=== PATIENT | male | born 1950 | race Caucasian/White ===

== ENCOUNTER 2019-12-15 22:54 | Inpatient (IN) | payer MEDICARE, BC ==
[~2019-12-15] VITALS: Ht 175.3 cm; Wt 83.4 kg
[2019-12-15 23:09] LABS: BASOPHILS ABSOLUTE AUTO 0.05 K/mm3 (0.00-0.23); BASOPHILS PERCENT AUTO 1 % (0-2); EOSINOPHILS ABSOLUTE AUTO 0.17 K/mm3 (0.00-0.68); EOSINOPHILS PERCENT AUTO 2 % (0-6); Hematocrit 43.6 % (37.0-53.0); Hemoglobin 14.3 g/dL (13.5-17.5); IMMATURE GRAN ABSOLUTE AUTO 0.03 K/mm3 (0.00-0.10); IMMATURE GRAN PERCENT AUTO 0 % (0-1); LYMPHOCYTES PERCENT AUTO 24 % (21-46); MONOCYTES ABSOLUTE AUTO 0.92 K/mm3 (0.16-1.47); MONOCYTES PERCENT AUTO 12 % (4-13); Mean Corpuscular HGB 34.9 pg (26.0-34.0); Mean Corpuscular HGB Conc 32.8 g/dL (31.5-36.5); Mean Corpuscular Volume 106 fL (80-100); Mean Platelet Volume 10.6 fL (9.1-12.4); NEUTROPHILS ABSOLUTE AUTO 4.94 K/mm3 (1.96-9.15); NEUTROPHILS PERCENT AUTO 62 % (41-73); Platelet Count 142 K/mm3 (150-400); RDW Coefficient Variation 12.7 % (11.7-14.2); RDW Standard Deviation 50.4 fL (35.1-46.3); White Blood Cell Count 8.01 K/mm3 (4.00-11.30)
[2019-12-15 23:23] LABS: International Normalized Ratio 1.12; Prothrombin Time Results 11.9 Sec (9.7-11.5)
[2019-12-15 23:26] LABS: Alanine Aminotransfer (ALT/SGP 77 U/L (12-78); Albumin, Blood 3.6 g/dL (3.4-5.0); Albumin/Globulin Ratio 0.9 (0.8-1.8); Alk Phos 121 U/L (50-136); Anion Gap 20 mmol/L (6-16); Aspartate Aminotrans (AST/SGOT 114 U/L (12-37); Bilirubin, Total 1.6 mg/dL (0.1-1.0); Blood Urea Nitrogen 9 mg/dL (8-24); Bun/Creatinine Ratio 10.6 (12.0-20.0); CO2, Blood 16 mmol/L (21-32); Calcium, Blood 9.1 mg/dL (8.5-10.1); Chloride, Blood 103 mmol/L (98-108); Creatinine, Blood 0.85 mg/dL (0.60-1.20); Ethanol (Alcohol), Blood, Med <3 mg/dL; Globulin, Blood 3.9 g/dL (2.2-4.0); Glomerular Filtration Rate >60 (60-); Glucose, Blood 156 mg/dL (70-99); Potassium, Blood 3.4 mmol/L (3.5-5.5); Sodium, Blood 139 mmol/L (136-145); Total Protein, Blood 7.5 g/dL (6.4-8.2)
[2019-12-15 23:29] LABS: U Amphetamine Screen Not Detected; U Barbituate Screen Not Detected; U Benzodiazapine Screen Not Detected; U Buprenorphine Screen Not Detected; U Cannabinoids Screen Not Detected; U Cocaine Screen Not Detected; U Methadone Screen Not Detected; U Methamphetamine Screen Not Detected; U Opiates Screen Not Detected; U Oxycodone Screen Not Detected; U Phencyclidine Screen Not Detected; U Propoxyphene Screen Not Detected
[2019-12-16 00:26] LABS: Source, Urine Clean Catch
[2019-12-16 00:29] LABS: Beta-hydroxybutyrate 1.5 mg/dL (0.2-2.8); Free Thyroxine 1.09 ng/dL (0.70-1.60); Salicylate <1.7 mg/dL (2.8-20.0)
[2019-12-16 00:29] LABS: Base Excess Venous 0.8 mmol/L; Bicarbonate Venous 25.7 mmol/L (24.0-30.0); PCO2 Venous 30.9 mmHg (38-42); PO2 Venous 130 mmHg (38-42)
[2019-12-16 00:31] LABS: Blood, Urine 2+ (Neg); Glucose Qualitative, Urine Neg (Neg); Ketones, Urine 1+ (Neg); Leukocyte Esterase, Urine 2+ (Neg); Nitrite, Urine Pos (Neg); Protein, Urine 3+ (Neg); Urobilinogen, Urine 4+ (Normal)
[2019-12-16 00:32] LABS: Appearance, Urine Hazy (Clear); Bilirubin, Urine 2+ (Neg); Color, Urine Amber (P-Yellow)
[2019-12-16 00:32] LABS: Acetaminophen, Random <2.0 ug/mL (10.0-30.0)
[2019-12-16 00:40] LABS: Amorphous Light (0-Heavy); Bacteria Mod /hpf; Mucus Light (0-Heavy); Red Blood Cells, Urine 0-2 /hpf (0-2); Squamous Epithelial Cells Rare /hpf (Few); White Blood Cells, Urine 25-50 /hpf (0-5)
[2019-12-16 04:18] LABS: BASOPHILS ABSOLUTE AUTO 0.04 K/mm3 (0.00-0.23); BASOPHILS PERCENT AUTO 1 % (0-2); EOSINOPHILS ABSOLUTE AUTO 0.02 K/mm3 (0.00-0.68); EOSINOPHILS PERCENT AUTO 0 % (0-6); Hematocrit 38.1 % (37.0-53.0); IMMATURE GRAN ABSOLUTE AUTO 0.02 K/mm3 (0.00-0.10); IMMATURE GRAN PERCENT AUTO 0 % (0-1); LYMPHOCYTES ABSOLUTE AUTO 0.73 K/mm3 (0.84-5.20); LYMPHOCYTES PERCENT AUTO 12 % (21-46); MONOCYTES ABSOLUTE AUTO 0.61 K/mm3 (0.16-1.47); MONOCYTES PERCENT AUTO 10 % (4-13); Mean Corpuscular HGB 35.3 pg (26.0-34.0); Mean Corpuscular HGB Conc 34.1 g/dL (31.5-36.5); Mean Corpuscular Volume 104 fL (80-100); Mean Platelet Volume 10.6 fL (9.1-12.4); NEUTROPHILS PERCENT AUTO 76 % (41-73); Platelet Count 125 K/mm3 (150-400); RDW Coefficient Variation 12.7 % (11.7-14.2); RDW Standard Deviation 48.8 fL (35.1-46.3); Red Blood Cell Count 3.68 M/mm3 (4.30-5.90); White Blood Cell Count 5.92 K/mm3 (4.00-11.30)
[2019-12-16 04:34] LABS: International Normalized Ratio 1.12; Prothrombin Time Results 11.9 Sec (9.7-11.5)
[2019-12-16 04:43] LABS: Alanine Aminotransfer (ALT/SGP 65 U/L (12-78); Albumin, Blood 3.3 g/dL (3.4-5.0); Alk Phos 100 U/L (50-136); Anion Gap 7 mmol/L (6-16); Aspartate Aminotrans (AST/SGOT 88 U/L (12-37); Bilirubin, Total 1.5 mg/dL (0.1-1.0); Blood Urea Nitrogen 8 mg/dL (8-24); Bun/Creatinine Ratio 11.5 (12.0-20.0); CO2, Blood 28 mmol/L (21-32); Calcium, Blood 8.9 mg/dL (8.5-10.1); Chloride, Blood 107 mmol/L (98-108); Creatinine, Blood 0.69 mg/dL (0.60-1.20); Globulin, Blood 3.2 g/dL (2.2-4.0); Glomerular Filtration Rate >60 (60-); Glucose, Blood 125 mg/dL (70-99); Potassium, Blood 3.3 mmol/L (3.5-5.5); Sodium, Blood 142 mmol/L (136-145); Total Protein, Blood 6.5 g/dL (6.4-8.2)
--- NOTE | 2019-12-16 06:35 | NUR ---
ADMIT NOTE/SHIFT SUMMARY PATIENT ADMITED EARLIER THIS SHIFT AND HAS BEEN PLEASENT AND COOPERATIVE TONIGHT. HOWEVER, PATIENT HAS BEEN VERY FORGETFUL. PATIENT ABLE TO STATE CURRENT DATE, PRESIDENT, LOCATION, AND TOWN. BUT PATIENT APPEARS TO BE HAVING DIFFICULTY REMEMBERING NEW INFORMATION. PATIENT VERY UNSTEADY ON FEET. IV FLUIDS RUNNING PER ORDERS. PATIENT ORIENTED TO ROOM, UNIT, AND CALL LIGHT. PATIENT CURRENTLY RESTING IN BED, TRYING TO GET SOME SLEEP. BED ALARM ON FOR SAFETY. WILL CONTINUE TO MONITOR PATIENT AND REPORT TO ONCOMING RN.
--- NOTE | 2019-12-16 09:52 | NUR ---
MD SORTO - UPDATE - ASSUME CARE PATIENT ALERT AND ORIENTED TO SELF, LOCATION AND TIME/DATE. PATIENT VERY UNSTEADY ON HIS FEET, TREMULOUS REQUIRING 2 PERSON ASSIT. PATIENT HAD INCONTINENT BOWEL MOVEMENT THAT WAS LIQUID YELLOW (PER PATIENT HE WAS UNAWARE). WITH 2 ASSIT PATIENT SHOWERED, TOILETED, LINEN CHANGE AND RETURNED BACK TO BED FOR ORAL CARE. RESP E/U ON ROOM AIR AND VSS. PATIENT DENIES ANY PAIN AND REPORTS THAT HE FEELS WELL. PATIENT NOTED TO BE JAUNDICE, RED/YELLOW EYE SCLERA AND PURPERA NOTED. DISCUSSED ALL FINDINGS WITH MD SORTO - NO NEW ORDERS GIVEN AT THIS TIME. BED ALARM ON AND PATIENT ATTEMPTING TO REST.
--- NOTE | 2019-12-16 18:25 | NUR ---
PCU DAYSHIFT SUMMARY PATIENT ALERT AND ORIENTED TO SELF, LOCATION AND DATE. CONFUSED TO SITUATION. RESP E/U ON ROOM AIR AND VSS. PATIENT IS VERY WEAK ON HIS FEET AND TREMULOUS WITH MOVEMENTS. JAUNDICE AND YELLOW SCLERA NOTED. PATIENT HAVING LIQUID STOOLS T/O SHIFT. DENIES ANY PAIN. BED ALARM ON AND PATIENT EDUCATED TO FALL PRECAUTIONS. PATIENT MEDICATED FOR CIWA 10-11 T/O SHIFT PER EMAR. CALL LIGHT W/I REACH. WILL CONTINUE TO MONITOR AND REPORT TO NOC SHIFT RN.
[2019-12-17 04:24] LABS: Hematocrit 36.2 % (37.0-53.0); Mean Corpuscular HGB 35.6 pg (26.0-34.0); Mean Corpuscular HGB Conc 33.1 g/dL (31.5-36.5); Mean Corpuscular Volume 107 fL (80-100); Mean Platelet Volume 11.3 fL (9.1-12.4); Platelet Count 121 K/mm3 (150-400); RDW Coefficient Variation 12.8 % (11.7-14.2); RDW Standard Deviation 51.1 fL (35.1-46.3); Red Blood Cell Count 3.37 M/mm3 (4.30-5.90)
[2019-12-17 04:37] LABS: Albumin, Blood 2.8 g/dL (3.4-5.0); Anion Gap 6 mmol/L (6-16); Blood Urea Nitrogen 6 mg/dL (8-24); Bun/Creatinine Ratio 8.1 (12.0-20.0); CO2, Blood 27 mmol/L (21-32); Calcium, Blood 8.9 mg/dL (8.5-10.1); Chloride, Blood 111 mmol/L (98-108); Creatinine, Blood 0.75 mg/dL (0.60-1.20); Glomerular Filtration Rate >60 (60-); Glucose, Blood 99 mg/dL (70-99); Magnesium, Blood 1.5 mg/dL (1.6-2.4); Phosphorus, Blood 4.6 mg/dL (2.5-4.9); Potassium, Blood 3.8 mmol/L (3.5-5.5); Sodium, Blood 144 mmol/L (136-145)
--- NOTE | 2019-12-17 07:59 | NUR ---
SHIFT SUMMARY PATIENT PLEASENT BUT FORGETFUL THROUGHOUT THE NIGHT. PATIENT EASILY REDIRECTABLE BUT VERY IMPULSIVE LAST NIGHT. CIWA'S CHARTED, PATIENT MEDICATED NEEDED FOR CIWA SCORES PER EMAR. PATIENT INCREASINGLY IMPULSIVE AND FORGETFUL THE NIGHT PROGRESSED AND HAS BEEN BECOMING LESS REDIRECTABLE WHEN AWAKE. PATIENT APPEARED TO SLEEP WELL ON AND OFF THROUGHOUT THE NIGHT. VITAL SIGNS CHARTED. IV FLUIDS RUNNING PER ORDERS. REPORT GIVEN TO ONCOMING RN.
--- NOTE | 2019-12-17 18:31 | NUR ---
SHIFT SUMMARY; MEDICATED PER CIWA ORDERS THROUGH OUT SHIFT. TOLERATES ATIVAN WELL. ORIENTED TO PERSON AND SITUATION OFF AND ON DURING SHIFT. 2 PERSON ASSIST TO BEDSIDE COMMODE. BRE VEST IN PLACE DUE TO CLIMBING OUT OF BED AND UNREDIRECTABLE. PT STATES HE IS FINE DISPITE VISUAL TREMORS, DISORIENTATION, AND UNABLE TO STAND INDEPENDANTLY. VISIBLE DIAPHERESIS DURING SHIFT, VSS, WILL CONTINUE TO MONITOR AND TREAT UNTIL CHANGE OF SHIFT.
[2019-12-18 04:38] LABS: Albumin, Blood 3.2 g/dL (3.4-5.0); Anion Gap 5 mmol/L (6-16); Blood Urea Nitrogen 5 mg/dL (8-24); CO2, Blood 28 mmol/L (21-32); Chloride, Blood 110 mmol/L (98-108); Creatinine, Blood 0.71 mg/dL (0.60-1.20); Glomerular Filtration Rate >60 (60-); Glucose, Blood 103 mg/dL (70-99); Magnesium, Blood 1.7 mg/dL (1.6-2.4); Phosphorus, Blood 3.5 mg/dL (2.5-4.9); Potassium, Blood 3.6 mmol/L (3.5-5.5); Sodium, Blood 143 mmol/L (136-145)
--- NOTE | 2019-12-18 06:50 | NUR ---
SHIFT SUMMARY PT SLEPT T/O NIGHT. CIWA DONE Q 2 HR, RANGE BETWEEN 7-12. TREATED PER EMAR. PT IN BRE RESTRAINTS, ASSESSED Q 2 HR. PT REPORTS NO CP OR PRESSURE. BED ALARM ON. O2 SATURATION ABOVE 92% ON RA. WILL CONTINUE TO MONITOR UNTIL REPORT GIVEN TO DAYSHIFT RN.
--- NOTE | 2019-12-18 18:07 | NUR ---
SHIFT NOTE PT HAS BEEN TREATED WITH ATIVAN AND LIBRIUM FOR CIWA OF 12 T/O THE DAY. PT DID REMOVE HIS IV AT SOME POINT TODAY WHICH WAS REPLACED, AND THIAMINE DRIP IS INFUSING AT THE TIME OF THIS NOTE. PT WAS LAST TREATED WITH ATIVAN HE WAS NOT ABLE TO FOCUS TO SWALLOW LIBRIUM. PT REMAINS IN BRE HE INTERMITTENLY ATTEMPTS TO EXIT THE BED.
[2019-12-19 04:14] LABS: BASOPHILS ABSOLUTE AUTO 0.05 K/mm3 (0.00-0.23); BASOPHILS PERCENT AUTO 1 % (0-2); EOSINOPHILS PERCENT AUTO 4 % (0-6); Hematocrit 39.2 % (37.0-53.0); Hemoglobin 13.2 g/dL (13.5-17.5); IMMATURE GRAN ABSOLUTE AUTO 0.02 K/mm3 (0.00-0.10); IMMATURE GRAN PERCENT AUTO 0 % (0-1); LYMPHOCYTES ABSOLUTE AUTO 0.81 K/mm3 (0.84-5.20); LYMPHOCYTES PERCENT AUTO 15 % (21-46); MONOCYTES ABSOLUTE AUTO 0.85 K/mm3 (0.16-1.47); MONOCYTES PERCENT AUTO 16 % (4-13); Mean Corpuscular HGB 35.5 pg (26.0-34.0); Mean Corpuscular HGB Conc 33.7 g/dL (31.5-36.5); Mean Corpuscular Volume 105 fL (80-100); Mean Platelet Volume 10.9 fL (9.1-12.4); NEUTROPHILS ABSOLUTE AUTO 3.54 K/mm3 (1.96-9.15); NEUTROPHILS PERCENT AUTO 65 % (41-73); Platelet Count 146 K/mm3 (150-400); RDW Coefficient Variation 12.6 % (11.7-14.2); RDW Standard Deviation 49.1 fL (35.1-46.3); Red Blood Cell Count 3.72 M/mm3 (4.30-5.90); White Blood Cell Count 5.47 K/mm3 (4.00-11.30)
[2019-12-19 04:31] LABS: Albumin, Blood 3.1 g/dL (3.4-5.0); Anion Gap 6 mmol/L (6-16); Blood Urea Nitrogen 7 mg/dL (8-24); Bun/Creatinine Ratio 11.1 (12.0-20.0); CO2, Blood 26 mmol/L (21-32); Calcium, Blood 8.9 mg/dL (8.5-10.1); Chloride, Blood 109 mmol/L (98-108); Creatinine, Blood 0.63 mg/dL (0.60-1.20); Glomerular Filtration Rate >60 (60-); Glucose, Blood 98 mg/dL (70-99); Phosphorus, Blood 3.7 mg/dL (2.5-4.9); Potassium, Blood 3.5 mmol/L (3.5-5.5); Sodium, Blood 141 mmol/L (136-145)
--- NOTE | 2019-12-19 04:33 | NUR ---
PT WAS SOMEWHAT IRRITABLE THIS EVENING. RN GAVE ATIVAN X4, AND LIBRIUM X1. PT IS COOPERATIVE WITH FREQUENT ENCOURAGEMENT, BUT DOESNT LAST LONG. STILL DISORIENTED SOME WITH SOME VISIBLE TREMORS. PT VSS, AOX2, ROOM AIR, TELE NSR WHEN ABLE TO READ WHEN NOT SHAKING OFTEN, VOIDING TO THE BRIEF X3, 0 BM. CALL LIGHT WITHIN REACH, BED IN LOWEST POSITION. WILL CONTINUE TO MONITOR.
--- NOTE | 2019-12-19 17:46 | NUR ---
SHIFT NOTE PT HAS BEEN REMOVED FROM BRE VEST DURING THIS SHIFT, WHICH HAS BEEN WELL TOLERATED. PT HAS HAD EVER CHAGNING MENTATION T/O THIS SHIFT, BUT HAS BEEN COOPERATIVE AND PLEASANT. PT WAS ALERT, CONVERSIVE AND PLEASANT. PT DID BECOME FEBRILE AND DROWSY AFTER WORKING WITH PT TODAY. PT WAS TREATED WITH TYLENOL FOR FEVER. PT IS SITTING UP DRINKING OJ IN BED AT THIS TIME. PT HAS BEEN TREATED ONLY WITH LIBRIUM THIS SHIFT WITH A CIWA THAT IS TRENDING DOWN.
[2019-12-20 04:27] LABS: Albumin, Blood 2.8 g/dL (3.4-5.0); Anion Gap 7 mmol/L (6-16); Blood Urea Nitrogen 11 mg/dL (8-24); Bun/Creatinine Ratio 16.8 (12.0-20.0); CO2, Blood 25 mmol/L (21-32); Calcium, Blood 9.2 mg/dL (8.5-10.1); Chloride, Blood 108 mmol/L (98-108); Creatinine, Blood 0.65 mg/dL (0.60-1.20); Glomerular Filtration Rate >60 (60-); Glucose, Blood 96 mg/dL (70-99); Magnesium, Blood 1.6 mg/dL (1.6-2.4); Phosphorus, Blood 3.8 mg/dL (2.5-4.9); Potassium, Blood 3.3 mmol/L (3.5-5.5); Sodium, Blood 140 mmol/L (136-145)
--- NOTE | 2019-12-20 05:53 | NUR ---
PT RESTED THROUGHOUT NIGHT DISORIENTED AND LETHARGIC NO ATIVAN OR LIBRIUM NEEDED PT HAD MULTIPLE INCONT URINARY EPISODES 0 BM CIWA 8 ,6, 6 NO C/O PAIN CALL LIGHT WITHIN REACH, BED ALARM ON, BED IN LOWEST POSITION WILL CONTINUE TO MONITOR.
--- NOTE | 2019-12-20 17:50 | NUR ---
RECEIVED PATIENT FROM PCU AROUND 1705. IV INFUSING LEFT A/C. LUNGS CLEAR. GOOD BUE PULSES, WEAK BLE PULSES. SKIN JAUNDICE. INCONTINENT OF URINE. VERY UNSTEADY ON FEET. ALERT TO ;SELF, KNOWS PRESIDENT, KNOWS LIVES IN [facility], KNOWS DATE AFTER SOME THOUGHT, AND KNOWS IN [place]. DOES NOT KNOW HOW HE GOT HERE OR WHERE HE WAS GOING. CIWA =1 AT THIS TIME,W/ NO OBVIOUS TREMORS OR HALLUCINATIONS. FOLLOWS COMMANDS. SCABS SCATTERED ALL EXTREMITIES. ECCHYMOTIC SCATTERED ALL EXTREMITIES. [facility] POLICE HAVE CALLED ABOUT PATIENT AND ASK IF HE IS HERE. IT APPEARS THEY LOCATED PATIENT WITH A PING FROM HIS CELL PHONE. PATIENT IS A MISSING PERSONS OUT OF [facility] AND POLICE WILL LET HIS RELATIVES KNOW HE IS HERE. AT THIS TIME WE DO NOT HAVE ANY PHONE NUMBERS FOR PATIENT RELATIVES. [facility]
--- NOTE | 2019-12-20 20:15 | NUR ---
PT RESTED COMFORTABLY IN BED; CHEERFUL; ALERT AND ORIENTED X 2.
--- NOTE | 2019-12-21 03:39 | NUR ---
SHIFT SUMMARY: 69 Y/O MALE RESTED COMFORTABLY ALL SHIFT; CIWA 4; PT ALERT AND ORIENTED X 2; PT UNABLE TO STAND OR BEAR WEIGHT WITHOUT FALLING HE APPEARS VERY WEAKENED; PTS THOUGHT PROCESS IS DISORGANIZED AND UNABLE TO CARRY ON CONVERSATION WITH STAFF WITH PT ONLY MUMBLING TO SELF AT TIMES; PT VOICED HE COULD USE SOME VODKA TONIGHT; DENIES PAIN OR NAUSEA; BED ALARM APPLIED; BED LOW POSITION WITH CALL LIGHT AT SIDE.
[2019-12-21 05:47] LABS: BASOPHILS ABSOLUTE AUTO 0.04 K/mm3 (0.00-0.23); BASOPHILS PERCENT AUTO 1 % (0-2); EOSINOPHILS ABSOLUTE AUTO 0.17 K/mm3 (0.00-0.68); EOSINOPHILS PERCENT AUTO 3 % (0-6); Hemoglobin 12.4 g/dL (13.5-17.5); IMMATURE GRAN ABSOLUTE AUTO 0.02 K/mm3 (0.00-0.10); IMMATURE GRAN PERCENT AUTO 0 % (0-1); LYMPHOCYTES ABSOLUTE AUTO 0.93 K/mm3 (0.84-5.20); LYMPHOCYTES PERCENT AUTO 15 % (21-46); MONOCYTES ABSOLUTE AUTO 1.21 K/mm3 (0.16-1.47); MONOCYTES PERCENT AUTO 19 % (4-13); Mean Corpuscular HGB 35.1 pg (26.0-34.0); Mean Corpuscular HGB Conc 33.5 g/dL (31.5-36.5); Mean Corpuscular Volume 105 fL (80-100); Mean Platelet Volume 11.2 fL (9.1-12.4); NEUTROPHILS ABSOLUTE AUTO 3.88 K/mm3 (1.96-9.15); NEUTROPHILS PERCENT AUTO 62 % (41-73); Platelet Count 161 K/mm3 (150-400); RDW Coefficient Variation 12.5 % (11.7-14.2); RDW Standard Deviation 48.3 fL (35.1-46.3); Red Blood Cell Count 3.53 M/mm3 (4.30-5.90); White Blood Cell Count 6.25 K/mm3 (4.00-11.30)
[2019-12-21 06:11] LABS: Magnesium, Blood 1.6 mg/dL (1.6-2.4)
[2019-12-21 06:12] LABS: Anion Gap 9 mmol/L (6-16); Blood Urea Nitrogen 10 mg/dL (8-24); Bun/Creatinine Ratio 15.3 (12.0-20.0); CO2, Blood 25 mmol/L (21-32); Calcium, Blood 8.9 mg/dL (8.5-10.1); Chloride, Blood 106 mmol/L (98-108); Creatinine, Blood 0.66 mg/dL (0.60-1.20); Glomerular Filtration Rate >60 (60-); Glucose, Blood 106 mg/dL (70-99); Potassium, Blood 3.4 mmol/L (3.5-5.5); Sodium, Blood 140 mmol/L (136-145)
--- NOTE | 2019-12-21 18:14 | NUR ---
SHIFT SUMAMRY: NO ACUTE CHANGES TO REPORT THIS SHIFT. PT A&O X2; CALM AND COOPERATIVE WITH CARE. CIWAs ASSESSED AT 5 T/O SHIFT; CONFUSION CONTINUING. VERY WEAK c POOR, SHUFFLING GAIT; 2-ASSIST TO BSC; PT & OT EVAL & TREAT. FAMILY UPDATED WITH PLAN OF CARE. WCTM.
--- NOTE | 2019-12-21 19:28 | NUR ---
PT RESTING IN BED; ALERT AND ORIENTED X 2; ABLE TO FOLLOW VERY SIMPLE VERBAL COMMANDS;
--- NOTE | 2019-12-22 04:16 | NUR ---
SHIFT SUMMARY: 69 Y/O MALE RESTED COMFORTABLY ALL SHIFT; PT VERY DROWSY BEGINNING OF SHIFT AND HAD DIFFICULTY TALKING WITH THIS NURSE WITH PATIENT MORE AWAKE AND LUCID IN LATE MORNING HOURS; PT ATE [employer] AND WAS ABLE FEED SELF WITHOUT ISSUE AND CARRY ON ORGANIZED CONVERSATION WITH THIS NURSE; CIWA 5; DENIES PAIN OR NAUSEA; NO AGGRESSIVE BEHAVIOR NOTED; PT STILL VERY WEAK AND UNABLE TO AMBULATE SO THUS BED ALARM APPLIED, BED LOW POSITION WITH CALL LIGHT AT SIDE.
[2019-12-22 06:07] LABS: BASOPHILS ABSOLUTE AUTO 0.04 K/mm3 (0.00-0.23); BASOPHILS PERCENT AUTO 1 % (0-2); EOSINOPHILS PERCENT AUTO 4 % (0-6); Hematocrit 35.1 % (37.0-53.0); Hemoglobin 11.8 g/dL (13.5-17.5); IMMATURE GRAN ABSOLUTE AUTO 0.02 K/mm3 (0.00-0.10); IMMATURE GRAN PERCENT AUTO 0 % (0-1); LYMPHOCYTES ABSOLUTE AUTO 0.78 K/mm3 (0.84-5.20); LYMPHOCYTES PERCENT AUTO 14 % (21-46); MONOCYTES ABSOLUTE AUTO 0.96 K/mm3 (0.16-1.47); MONOCYTES PERCENT AUTO 17 % (4-13); Mean Corpuscular HGB 35.3 pg (26.0-34.0); Mean Corpuscular HGB Conc 33.6 g/dL (31.5-36.5); Mean Corpuscular Volume 105 fL (80-100); Mean Platelet Volume 10.7 fL (9.1-12.4); NEUTROPHILS ABSOLUTE AUTO 3.53 K/mm3 (1.96-9.15); NEUTROPHILS PERCENT AUTO 64 % (41-73); Platelet Count 170 K/mm3 (150-400); RDW Coefficient Variation 12.3 % (11.7-14.2); RDW Standard Deviation 48.1 fL (35.1-46.3); Red Blood Cell Count 3.34 M/mm3 (4.30-5.90); White Blood Cell Count 5.53 K/mm3 (4.00-11.30)
[2019-12-22 06:19] LABS: Anion Gap 7 mmol/L (6-16); Blood Urea Nitrogen 10 mg/dL (8-24); Bun/Creatinine Ratio 16.9 (12.0-20.0); CO2, Blood 27 mmol/L (21-32); Calcium, Blood 9.4 mg/dL (8.5-10.1); Chloride, Blood 104 mmol/L (98-108); Creatinine, Blood 0.59 mg/dL (0.60-1.20); Glomerular Filtration Rate >60 (60-); Glucose, Blood 118 mg/dL (70-99); Potassium, Blood 3.6 mmol/L (3.5-5.5); Sodium, Blood 138 mmol/L (136-145)
--- NOTE | 2019-12-22 17:50 | NUR ---
SUMMARY PT IS A/O X2-3 THIS AM, FORGETFUL, SLOW MENTATION. PLEASANT/COOPERATIVE AFFECT. CIWA SCORES 2 R/T SLOW MENTATION, NO BUE TREMORS, HE STATE NO ANXIETY, VS ARE STABLE. HE WAS UP TO CHAIR FOR BF HOWEVER HEAVY 2 ASSIST, STATE PAIN W WT BRG. PHYTHER IN FOR EVAL STATE PT CONTINUES TO HAVE PAIN w WT BRG L ANKLE. DR SOLOMONTRATE ORDER IBUPROFEN 800 MG, XRAY L ANKLE WHICH WAS NEG FOR FX. PHYTHER STATE PROBABLY SPRAIN, RECOMMEND ANKLE BRACE. PT IS FROM [place], HE HAS BEEN ON PHONE MULT X'S W FAMILY/FRIENDS.
--- NOTE | 2019-12-23 04:49 | NUR ---
SHIFT SUMMARY NO ACUTE CHANGES TO REPORT THIS SHIFT. PT HAS RESTED MOST OF THE NIGHT, AND HAS NO COMPLAINTS. CIWA SCORES REMAIN LOW. 0-1 WITH MY ASSESSMENT. PT IS A/OX3, IT TAKES PT SOME TIME TO PROCESS THE QUESTIONS I AM ASKING, BUT ANSWERS QUESTIONS APPROPRIATELY. VITALS ARE STABLE. PLAN IS FOR DISCHARGE TUESDAY BACK TO [place] WITH FAMILY. BED IN LOWEST POSITION, CALL LIGHT WITHIN REACH. WILL CONTINUE TO MONITOR AND REPORT TO ONCOMING RN.
[2019-12-23 05:07] LABS: BASOPHILS ABSOLUTE AUTO 0.04 K/mm3 (0.00-0.23); BASOPHILS PERCENT AUTO 1 % (0-2); EOSINOPHILS ABSOLUTE AUTO 0.25 K/mm3 (0.00-0.68); EOSINOPHILS PERCENT AUTO 5 % (0-6); Hematocrit 37.3 % (37.0-53.0); Hemoglobin 12.2 g/dL (13.5-17.5); IMMATURE GRAN ABSOLUTE AUTO 0.01 K/mm3 (0.00-0.10); IMMATURE GRAN PERCENT AUTO 0 % (0-1); LYMPHOCYTES ABSOLUTE AUTO 0.87 K/mm3 (0.84-5.20); LYMPHOCYTES PERCENT AUTO 18 % (21-46); MONOCYTES PERCENT AUTO 15 % (4-13); Mean Corpuscular HGB 35.1 pg (26.0-34.0); Mean Corpuscular HGB Conc 32.7 g/dL (31.5-36.5); Mean Corpuscular Volume 107 fL (80-100); Mean Platelet Volume 11.3 fL (9.1-12.4); NEUTROPHILS ABSOLUTE AUTO 2.96 K/mm3 (1.96-9.15); NEUTROPHILS PERCENT AUTO 61 % (41-73); Platelet Count 189 K/mm3 (150-400); RDW Coefficient Variation 12.4 % (11.7-14.2); RDW Standard Deviation 49.1 fL (35.1-46.3); Red Blood Cell Count 3.48 M/mm3 (4.30-5.90); White Blood Cell Count 4.83 K/mm3 (4.00-11.30)
[2019-12-23 05:44] LABS: Anion Gap 6 mmol/L (6-16); Blood Urea Nitrogen 13 mg/dL (8-24); Bun/Creatinine Ratio 21.1 (12.0-20.0); CO2, Blood 28 mmol/L (21-32); Calcium, Blood 9.5 mg/dL (8.5-10.1); Chloride, Blood 107 mmol/L (98-108); Creatinine, Blood 0.62 mg/dL (0.60-1.20); Glomerular Filtration Rate >60 (60-); Glucose, Blood 98 mg/dL (70-99); Potassium, Blood 3.8 mmol/L (3.5-5.5); Sodium, Blood 141 mmol/L (136-145)
--- NOTE | 2019-12-23 15:37 | NUR ---
SUMMARY PT IS A/O X3 T/O DAY, CIWA SCORES 0-2. HE CONTINUES TO DEMONSTRATE CLOUDED, SLOW MENTATION HOWEVER IMPROVING FROM PREVIOUS DAYS. HE WAS UP w PHYSICIAN PRACTICE CONSULTANT TODAY, ABLE TO AMBULATE INTO BR & TAKE SHOWER. L ANKLE CONTINUES MILDLY SWOLLEN, PAINFUL TO WALK ON, GAIT UNSTEADY. DR ACOSTA IN TO SEE HIM, ASSESS, STATE POSSIBLE GOUT, ORDER INDOMTHICIN. DR AOCSTA STATE D/C TOMORROW WHEN FAMILY UP FROM [place], DAUGHTER RICCO NOTIFIED, STATE SHE WILL BE ABLE TO COME UP TOMORROW, WILL STAY w PT FOR A FEW DAYS AFTER D/C. PT STATE SATISFACTION w PLAN. VSS.
[2019-12-24 04:35] LABS: BASOPHILS ABSOLUTE AUTO 0.03 K/mm3 (0.00-0.23); BASOPHILS PERCENT AUTO 1 % (0-2); EOSINOPHILS ABSOLUTE AUTO 0.23 K/mm3 (0.00-0.68); EOSINOPHILS PERCENT AUTO 4 % (0-6); Hematocrit 34.6 % (37.0-53.0); Hemoglobin 11.5 g/dL (13.5-17.5); IMMATURE GRAN ABSOLUTE AUTO 0.02 K/mm3 (0.00-0.10); IMMATURE GRAN PERCENT AUTO 0 % (0-1); LYMPHOCYTES ABSOLUTE AUTO 0.91 K/mm3 (0.84-5.20); LYMPHOCYTES PERCENT AUTO 17 % (21-46); MONOCYTES ABSOLUTE AUTO 0.56 K/mm3 (0.16-1.47); MONOCYTES PERCENT AUTO 11 % (4-13); Mean Corpuscular HGB 35.1 pg (26.0-34.0); Mean Corpuscular HGB Conc 33.2 g/dL (31.5-36.5); Mean Corpuscular Volume 106 fL (80-100); Mean Platelet Volume 11.2 fL (9.1-12.4); NEUTROPHILS ABSOLUTE AUTO 3.51 K/mm3 (1.96-9.15); NEUTROPHILS PERCENT AUTO 67 % (41-73); Platelet Count 203 K/mm3 (150-400); RDW Standard Deviation 47.4 fL (35.1-46.3); Red Blood Cell Count 3.28 M/mm3 (4.30-5.90); White Blood Cell Count 5.26 K/mm3 (4.00-11.30)
[2019-12-24 04:55] LABS: Anion Gap 4 mmol/L (6-16); Blood Urea Nitrogen 14 mg/dL (8-24); Bun/Creatinine Ratio 23.5 (12.0-20.0); CO2, Blood 30 mmol/L (21-32); Calcium, Blood 9.2 mg/dL (8.5-10.1); Chloride, Blood 106 mmol/L (98-108); Glomerular Filtration Rate >60 (60-); Glucose, Blood 113 mg/dL (70-99); Sodium, Blood 140 mmol/L (136-145)
--- NOTE | 2019-12-24 05:57 | NUR ---
SHIFT SUMMARY NO ACUTE CHANGES TO REPORT THIS SHIFT. PT HAS RESTED MOST OF THE NIGHT. MEDICATED FOR LEFT ANKLE PAIN. PT SHOWS NO SIGNS OF ETOH WITHDRAWL. PT CONTINUES TO BE SLOW IN PROCESSING HIS THOUGHTS, BUT OTHERWISE IS A/OX4. PLAN IS FOR DC TODAY. FAMILY TO ARRIVE TO ASSIST PT WITH DC PROCESS. BED IN LOWEST POSITION, CALL LIGHT WITHIN REACH.
[2019-12-24] MEDS ORDERED: ACET325 PO (10:49)
[2019-12-24] MEDS ORDERED: IBUP400 PO (10:50)
[2019-12-24] MEDS ORDERED: ONE DAILY MUL400 MCG PO (10:51)
[2019-12-24] MEDS ORDERED: ONDA4ODT MM (10:51)
[2019-12-24] MEDS ORDERED: VISBIOME PROBIOTIC PO (10:52)
[2019-12-24] MEDS ORDERED: INDO50 PO (11:51)
--- NOTE | 2019-12-24 13:08 | NUR ---
DISCHARGE 1205 PT DC HOME TO [facility], PICKED UP BY FRIEND. PT COMPLAINED OF ANKEL PAIN BEFORE GOING HOME, MEDICATED WITH PRN TYLENOL. PT A&O TO PLACE, PERSON, YEAR. PT COPERATIVE TO CARE BEING GIVEN. NO COMPLAINTS OF N/V. DISCHARGE PAPER WORK REVIEWED WITH PATIENT. NEW PRISCRIPTIONS FAXED TO [employer] IN [facility], AND WRITTEN SCRIPT FOR CANE GIVEN TO PT. IV TAKEN OUT BEFORE DISCHARGE. DC VOLUNTEER TOOK PT VIA WHEEL CHAIR TO FRIENDS CAR.
--- NOTE | 2019-12-26 20:13 | NUR ---
REVIEWED PT'S CONTACT INFORMATION R/T HOME MEDICATION LEFT IN LOCKED DRAWER, THE MEDICATIO IS UNLABLED AND UNIDENTIFIED. HAND WALKED IT TO PHARMACY AND RELAYED THIS TO THEM.
== END 2019-12-24 12:04 | disposition home or self-care (01) | DRG 897 ==
LOC: ER 22:54 → PCU 12-16 02:10 → MEDS 12-20 17:18 → ENPENDDIS 12-24 10:22 → MEDS 12-24 12:04
PROVIDERS: Emergency Medicine; Family Medicine; Internal Medicine; ADMIT Internal Medicine
DX: F10.231 Alcohol dependence with withdrawal delirium (principal); E87.2 Acidosis; G31.2 Degeneration of nervous system due to alcohol; E86.0 Dehydration; E87.6 Hypokalemia; E83.42 Hypomagnesemia; D69.6 Thrombocytopenia, unspecified; M25.572 Pain in left ankle and joints of left foot; Z78.1 Physical restraint status; M10.9 Gout, unspecified
CPT/HCPCS: 36415; 70450; 71045; 73600; 80048; 80053; 80069; 81001; 82010; 82803; 83605; 83735; 84439; 84443; 84550; 85025; 85027; 85610; 87040; 87086; 93005; 93010; 93306; 96365; 97110; 97112; 97116; 97161; 97166; 97530; 97535; 99285-25; A9270; A9270-GY; G0480; J0696; J1650; J2060; J3411; J3475; J7030; J7042; J7060